=== PATIENT | female | born 1950 | race Caucasian/White ===

== ENCOUNTER → 2017-11-04 | Outpatient (CLI) | payer MEDICARE, OTHER | END | disposition home or self-care (01) | LOC: MAMMO 07:44 | PROVIDERS: ATTEND Family Medicine | DX: Z12.31 Encounter for screening mammogram for malignant neoplasm of breast (principal) | CPT/HCPCS: 77063; 77067 ==

== ENCOUNTER → 2017-11-20 | Outpatient (CLI) | payer MEDICARE, OTHER ==
--- NOTE | 2017-11-20 15:07 | RAD ---
Right breast ultrasound, 11/20/2017: History: Abnormal screening mammogram The recent screening mammography demonstrated a small smooth nodule in the retroareolar region just medial to the midline. A targeted ultrasound exam of that region demonstrates a small 8 x 5 x 4 mm relatively isoechoic nodule. Its margins are mildly lobulated but smooth. No posterior acoustic enhancement or shadowing is seen. It does not demonstrate malignant features. This probably corresponds to the mammographic abnormality, however, that cannot be stated with certainty. There are mildly prominent retroareolar ducts. No other abnormality is seen in this region. IMPRESSION: Small right retroareolar nodule which probably corresponds to the mammographic abnormality. Its probable stability when compared to older mammograms suggests a benign etiology. Surveillance consisting of follow-up right 3-D mammography and breast ultrasound in 6 months is suggested to confirm stability. BI-RADS 3-probably benign findings
== END | disposition home or self-care (01) ==
LOC: US 13:52
PROVIDERS: ATTEND Family Medicine
DX: N63.41 Unspecified lump in right breast, subareolar (principal)
CPT/HCPCS: 76641

== ENCOUNTER → 2018-11-20 | Outpatient (CLI) | payer MEDICARE, OTHER ==
--- NOTE | 2018-11-20 11:06 | RAD ---
Exam: Right Upper Quadrant Ultrasound 11/20/2018 8:00 AM Indication: Right upper quadrant pain. Technique: Multiple realtime grayscale sonographic images were obtained over the abdomen. Static images were submitted for interpretation. Comparisons: None available. Findings: There is diffuse thickening of the gallbladder wall. Small amount of pericholecystic fluid appears to be present. No definitive cholelithiasis is identified by ultrasound. The common bile duct is top normal measuring 5 mm in diameter. Right kidney is unremarkable in appearance measuring 8.5 cm in length. The liver is partially visualized. Liver appears be normal in size measuring approximately 14 cm longitudinally. IMPRESSION: Gallbladder wall thickening, with trace pericholecystic fluid. No definitive gallstones are seen. The appearance is somewhat nonspecific however cholecystitis remains in the differential diagnosis. Consider correlation with hepatobiliary scan as clinically indicated. Electronically signed by: Ilan Becerra MD (11/20/2018 11:03 AM) [id number]
== END | disposition home or self-care (01) ==
LOC: US 07:48
PROVIDERS: ATTEND Physician Assistant Medical
DX: K85.90 Acute pancreatitis without necrosis or infection, unspecified (principal)
CPT/HCPCS: 76705

== ENCOUNTER → 2019-01-29 | Outpatient (CLI) | payer MEDICARE, OTHER ==
--- NOTE | 2019-01-29 15:21 | RAD ---
Right knee, 2 views, 01/29/2019: HISTORY: Knee injury, swelling No fracture or dislocation is identified. The knee joint space is well maintained. There is minimal patellofemoral spurring. No large joint effusion is seen. IMPRESSION: No acute bony abnormality is detected. Electronically signed by: Wilder Jean Baptiste MD (01/29/2019 3:18 PM) [facility]
== END | disposition home or self-care (01) ==
LOC: DXRAD 08:56
PROVIDERS: ATTEND Physician Assistant
DX: M76.891 Other specified enthesopathies of right lower limb, excluding foot (principal)
CPT/HCPCS: 73560

== ENCOUNTER → 2020-02-09 | Outpatient (CLI) | payer MEDICARE ==
--- NOTE | 2020-02-09 14:54 | RAD ---
EXAM: FOOT RIGHT 3V, KNEE RIGHT 3V 02/09/2020 12:00 AM CLINICAL INDICATION:Pain COMPARISON:None TECHNIQUE:3 views of the right knee and 3 views of the right foot FINDINGS: Right knee: No acute fracture. Alignment is normal. There is mild medial compartment narrowing and small tricompartmental osteophytes. Small joint effusion. Right foot: No acute fracture. There is a bipartite tibial sesamoid of the great toe. Alignment is normal. Joint spaces are maintained. Small dorsal osteophytes at the naviculocuneiform joint. Small plantar and tiny calcaneal enthesophytes noted. No soft tissue abnormality. IMPRESSION: 1. No acute osseous abnormality of the right knee. Mild tricompartment osteoarthrosis, greatest in medial compartment. Small joint effusion. 2. No acute osseous abnormality of the foot. Electronically signed by: Jerrica Daly MD (02/09/2020 2:51 PM) [id number]
== END | disposition home or self-care (01) ==
LOC: PMG 11:17
PROVIDERS: ATTEND Family Medicine
DX: M17.11 Unilateral primary osteoarthritis, right knee (principal); M25.461 Effusion, right knee; M25.761 Osteophyte, right knee; M77.31 Calcaneal spur, right foot
CPT/HCPCS: 73562; 73630

== ENCOUNTER → 2020-12-13 | Outpatient (CLI) | payer MEDICARE ==
--- NOTE | 2020-12-13 17:15 | RAD ---
EXAM: Pelvis and right hip, 3 views; right femur, 2 views. HISTORY: Pain. COMPARISON: None. FINDINGS: A frontal view the pelvis and 2 views of the right hip and femur are obtained. There is no acute fracture, dislocation or subluxation. The right femoral head is normal in configuration. There is degenerative change involving the visualized lumbar spine. There is suspected mild osteitis pubis. There is no suspicious osseous lesion. IMPRESSION: No acute osseous finding. Electronically signed by: Fariba Abreu MD (12/13/2020 5:13 PM) [facility]
== END ==
LOC: PMG 16:26
PROVIDERS: ATTEND Nurse Practitioner Family
DX: M25.551 Pain in right hip (principal); M47.816 Spondylosis without myelopathy or radiculopathy, lumbar region
CPT/HCPCS: 73502; 73552

== ENCOUNTER 2022-01-13 11:35 | Emergency (ER) | payer MEDICARE ==
[~2022-01-13] VITALS: Ht 165.1 cm; Wt 90.5 kg
--- NOTE | 2022-01-13 12:08 | PHYS DOC ---
General Adult EDM: Chief Complaint: LACERATION/AVULSION HPI: HPI: Patient is a 72-year-old female who presents with right ankle pain and laceration to right hand. Patient states that she tripped and hit her right ankle on her bike stand. Patient has superficial laceration to right index finger. Patient reports slamming her hand in the door jam. Some swelling and pain to right ankle. Range of motion intact. Reports taking hydrocodone prior to arrival for discomfort. Review of Systems: Review of Systems: ROS At least 10 ROS systems have been reviewed and are negative except as documented in the HPI. General: Negative except as outlined in HPI above. Skin: Negative except as outlined in HPI above. HEENT: Negative except as outlined in HPI above. Neck: Negative except as outlined in HPI above. Respiratory: Negative except as outlined in HPI above.. Cardiovascular: Negative except as outlined in HPI above. Abdomen: Negative except as outlined in HPI above. : Negative except as outlined in HPI above. Back/MSK: Negative except as outlined in HPI above. Neuro: Negative except as outlined in HPI above. Psych: Negative except as outlined in HPI above. Allergies: Allergies: Allergies Coded Allergies Type Severity Reaction Last Updated Verified No Known Drug Allergies 01/13/22 No Physical Exam: PE: Constitutional: Well developed, well nourished, no acute distress, non-toxic appearance. [] HENT: Normocephalic, atraumatic, bilateral external ears normal, oropharynx moist, no oral exudates, nose normal. [] Eyes: PERRLA, EOMI, conjunctiva normal, no discharge. [] Neck: Normal range of motion, no tenderness, supple, no stridor. [] Cardiovascular:Heart rate regular rhythm, no murmur [] Lungs & Thorax: Bilateral breath sounds clear to auscultation [] Abdomen: Bowel sounds normal, soft, no tenderness, no masses, no pulsatile masses. [] Skin: 1 inch, superficial laceration to right index finger. Back: No tenderness, no CVA tenderness. [] Extremities: Right ankle tenderness, some bruising noted, mild swelling, ROM intact, pedal pulses intact] Neurologic: Alert and oriented X 3, normal motor function, normal sensory function, no focal deficits noted. [] Psychologic: Affect normal, judgement normal, mood normal. [] EKG: EKG: [] Radiology/Procedures: Radiology/Procedures: [] Heart Score: C/O Chest Pain: No Risk Factors: Risk Factors: DM, Current or recent (<one month) smoker, HTN, HLP, family history of CAD, obesity. Risk Scores: Score 0 - 3: 2.5% MACE over next 6 weeks - Discharge Home Score 4 - 6: 20.3% MACE over next 6 weeks - Admit for Clinical Observation Score 7 - 10: 72.7% MACE over next 6 weeks - Early Invasive Strategies Course & Med Decision Making: Course & Med Decision Making Pertinent Labs and Imaging studies reviewed. (See chart for details) [] 72-year-old female presents with right knee pain and laceration to right index finger. Right knee x-rayed. Imaging was unremarkable. Laceration was cleaned and closed with Dermabond. No indication for sutures. Patient took hydrocodone prior to arrival for pain and is denying needing anything in the ER. Educated on RICE. Advised to follow-up with PCP if pain continued. Patient may need follow-up imaging. Discussed aftercare for laceration. Patient was prescribed okay with plan. Dragon Disclaimer: Dragon Disclaimer: This electronic medical record was generated, in whole or in part, using a voice recognition dictation system. Departure Departure: Impression: Primary Impression: Laceration Disposition: 01 HOME / SELF CARE / HOMELESS Condition: STABLE Referrals: MONO VIDES MD (PCP) Patient Instructions: Laceration Care, Child, [id number] Additional Instructions: You are seen the emergency room for a laceration to your hand along with knee pain. Ibuprofen Tylenol for pain. Rest, use ice, elevate to help with swelling and pain. Follow-up with your PCP if you feel like pain is not resolving, you may need repeat imaging. EMERGENCY DEPARTMENT GENERAL DISCHARGE INSTRUCTIONS Thank you for coming to [facility] (ED) today and trusting us with you care. We trust that you had a positivie experience in our Emergency Department. If you wish to speak to the department management, you may call the director at [phone]. YOUR FOLLOW UP INSTRUCTIONS ARE FOLLOWS: 1. Do you have a private Doctor? If you do not have a private doctor, please ask for a resource list of physicians or clinics that may be able to assist you with follow up care. 2. The Emergency Physician has interpreted your x-rays. The X-Ray specialist will also review them. If there is a change in the findings, you will be notified in 48 hours when at all possible. 3. A lab test or culture has been done, your results will be reviewed and you will be notified if you need a change in treatment. ADDITIONAL INSTRUCTIONS AND INFORMATION: 1. Your care today has been supervised by a physician who is specially trained in emergency care. Many problems require more than one evaluation for a complete diagnosis and treatment. We recommend that you schedule your follow up appointment as recommended to ensure complete treatment of you illness or injury. If you are unable to obtain follow up care and continue to have a problem, or if your condition worsens, we recommend that you return to the ED. 2. We are not able to safely determine your condition over the phone nor are we able to give sound medical advice over the phone. For these safety reasons, if you call for medical advice we will ask you to come to the ED for further evaluation. 3. If you have any questions regarding these discharge instructions please call the ED at [phone]. SAFETY INFORMATION: In the interest of safety, wellness, and injury prevention; we encourage you to wear your sealbelt, if you smoke; quite smoking, and we encourage family to use a protective helmet for bicycling and other sporting events that present an increased risk for head injury. IF YOUR SYMPTOMS WORSEN OR NEW SYMPTOMS DEVELOP, OR YOU HAVE CONCERNS ABOUT YOUR CONDITION; OR IF YOUR CONDITION WORSENS WHILE YOU ARE WAITING FOR YOUR FOLLOW UP APPOINTMENT; EITHER CONTACT YOUR PRIMARY CARE DOCTOR, THE PHYSICIAN WHOSE NAME AND NUMBER YOU WERE GIVEN, OR RETURN TO THE ED IMMEDIATELY. SLOAN INFANTE APRN January 13, 2022 12:08
--- NOTE | 2022-01-13 13:05 | RAD ---
EXAM: Right ankle, 3 views. HISTORY: Pain. COMPARISON: None. FINDINGS: 3 views of the right ankle are obtained. There is no fracture, dislocation or subluxation. There is lateral predominant ankle soft tissue swelling. The ankle mortise is intact. There is no ost eochondral lesion. There is a small plantar spur. There is a suspected small degenerative spur along the dorsal midfoot. IMPRESSION: Lateral ankle soft tissue swelling. No displaced fracture is seen. Electronically signed by: Fariba Abreu MD (01/13/2022 1:03 PM) [id number]
[2022-01-13 13:50] VITALS: BP 147/77
== END 2022-01-13 14:30 | disposition home or self-care (01) ==
LOC: ER 11:35
DX: S61.210A Laceration without foreign body of right index finger without damage to nail, initial encounter (principal); S90.01XA Contusion of right ankle, initial encounter; W01.0XXA Fall on same level from slipping, tripping and stumbling without subsequent striking against object, initial encounter; Y93.89 Activity, other specified; Y92.89 Other specified places as the place of occurrence of the external cause; Y99.8 Other external cause status
CPT/HCPCS: 12001; 73610; 99283